=== PATIENT | male | born 2000 | race Caucasian/White ===

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

== ENCOUNTER 2021-02-07 15:15 | Emergency (ER) | payer OTHER ==
[~2021-02-07 15:15] MED LIST: MEDROL4 MG PO; TESSALON PERLE100 MG PO; ZITHROMAX500 MG PO
== END 2021-02-07 17:00 | disposition home or self-care (01) ==
LOC: ER1 15:15
DX: B34.9 Viral infection, unspecified (principal); Z20.822 Contact with and (suspected) exposure to COVID-19
CPT/HCPCS: 71045; 99284; U0003

== ENCOUNTER 2021-02-16 23:23 | Emergency (ER) | payer OTHER ==
[2021-02-17 00:15] LABS: HEMOGLOBIN 15.6 gm/dl (14.0-17.5); RED BLOOD COUNT 4.92 M/UL (4.20-5.50); WHITE BLOOD COUNT 17.8 K/UL (4.5-11.0)
[2021-02-17 00:36] LABS: BUN/CREATININE RATIO 12 (0-10)
[2021-02-17] MEDS ORDERED: CIPRO500 MG PO (04:47)
[2021-02-19 03:07] LABS: CHLAMYDIA TRACHOMATIS, NAA Negative (Negative); NEISSERIA GONORRHOEAE, NAA Negative (Negative)
== END 2021-02-17 05:04 | disposition home or self-care (01) ==
LOC: ER1 23:23
PROVIDERS: Student in an Organized Health Care Education/Training Program
DX: N45.2 Orchitis (principal)
CPT/HCPCS: 76870; 80053; 81001; 85025; 87086; 96374; 99284; J1885

== ENCOUNTER 2021-02-19 13:26 | Emergency (ER) | payer OTHER ==
[~2021-02-19 13:26] MED LIST changes: +CIPRO500 MG PO
[2021-02-19 14:45] LABS: HEMOGLOBIN 16.1 gm/dl (14.0-17.5); RED BLOOD COUNT 5.1 M/UL (4.20-5.50)
[2021-02-19 14:46] LABS: WHITE BLOOD COUNT 8.7 K/UL (4.5-11.0)
[2021-02-19 15:08] LABS: BUN/CREATININE RATIO 13 (0-10)
[2021-02-19] MEDS ORDERED: VIBRAMYCIN100 MG PO (17:03)
== END 2021-02-19 17:30 | disposition home or self-care (01) ==
LOC: ER1 13:26
PROVIDERS: Preventive Medicine Occupational Medicine
DX: N45.2 Orchitis (principal); F17.290 Nicotine dependence, other tobacco product, uncomplicated; Z20.822 Contact with and (suspected) exposure to COVID-19
CPT/HCPCS: 76870; 80053; 81001; 85025; 85652; 86140; 87086; 96374; 96375; 99284; J0696; J1200; J2405; J7030; U0002